=== PATIENT | female | born 1980 | race Caucasian/White ===

== ENCOUNTER 2019-10-16 16:27 | Outpatient (CLI) | payer MEDICAID, SELFPAY ==
[2019-10-16 17:09] LABS: Basophils # 0.1 10^3/uL (0.0-0.1); Basophils % 0.7 %; Eosinophils # 0.2 10^3/uL (0.0-0.8); Eosinophils % 1.8 %; Hematocrit 43.5 % (37.0-47.0); Hemoglobin 13.9 g/dL (11.5-15.3); Lymphocytes # 2.2 10^3/uL (0.8-4.8); Lymphocytes % 20.1 %; Mean Corpuscular Hemoglobin 30.8 pg (28.0-34.0); Mean Corpuscular Volume 96.2 fL (81-99); Mean Platelet Volume 12.1 fL (7.4-10.4); Monocytes # 0.9 10^3/uL (0.2-0.9); Monocytes % 8.4 %; Neutrophils # 7.43 10^3/uL (1.8-7.7); Neutrophils % 68.5 %; Nucleated Red Blood Cells % 0 %; Platelet Count 233 10^3/cmm (130-400); Red Blood Count 4.52 10^6/uL (4.1-5.3); Red Cell Distribution Width 12.4 % (12.1-15.1); White Blood Count 10.8 10^3/uL (4.0-10.0)
[2019-10-16 17:32] LABS: Alanine Aminotransferase 11 U/L (0-33); Albumin Level 4.5 g/dL (3.5-5.2); Alkaline Phosphatase 71 IU/L (35-105); Aspartate Amino Transferase 14 U/L (0-32); Blood Urea Nitrogen 15 mg/dL (6-20); C Reactive Protein 5.9 mg/L (0.0-4.9); Calcium 9.1 mg/dL (8.5-10.5); Carbon Dioxide 21 mmol/L (22-29); Chloride 103 mmol/L (98-107); Globulin 3.2 g/dL (1.3-4.6); Glomerular Filtration Rate 94.7 mL/min (90-130); Glucose 209 mg/dL (65-115); Osmolality Calculated 278 mOsm/kg (285-295); Sodium 133 mmol/L (136-145); Thyroid Stimulating Hormone 1.16 uIU/mL (0.27-4.20); Total Bilirubin 0.6 mg/dL (0.15-1.2); Total Protein 7.7 g/dL (6.6-8.7)
[2019-10-16 18:15] LABS: Calcium 9.7 mg/dL (8.5-10.5); Parathyroid Hormone 27.9 pg/mL (15-65)
[2019-10-16 18:19] LABS: HIV 1 & 2 Antibody Non-Reactive (Non-Reactiv); HIV 1 & 2 Antigen Non-Reactive (Non-Reactiv)
[2019-10-16 19:40] LABS: Erythrocyte Sedimentation Rate 18 mm/hr (0-15)
[2019-10-18 11:22] LABS: Angiotensin Converting Enzyme 6 U/L (9-67)
[2019-10-22 22:17] LABS: Vit D 1,25 (Oh)2, Total 52 pg/mL (18-72); Vit D2 1,25 (Oh)2 <8 pg/mL; Vit D3 1,25 (Oh)2 52 pg/mL
== END 2019-10-16 16:28 | disposition home or self-care (01) ==
LOC: LAB 16:33
PROVIDERS: Visit Provider Internal Medicine Pulmonary Disease
DX: D86.9 Sarcoidosis, unspecified (principal); J44.1 Chronic obstructive pulmonary disease with (acute) exacerbation; Z87.891 Personal history of nicotine dependence
CPT/HCPCS: 80053; 82164; 82310; 82652; 83970; 84443; 85025; 85651; 86140; 87806

== ENCOUNTER → 2019-11-07 16:30 | Outpatient (BNVA) | payer MEDICAID, SELFPAY | PROVIDERS: Visit Provider Nurse Practitioner Family | DX: J44.1 Chronic obstructive pulmonary disease with (acute) exacerbation (principal); Z11.59 Encounter for screening for other viral diseases | CPT/HCPCS: 87635 ==

== ENCOUNTER → 2020-03-05 08:28 | Outpatient (BNVA) | payer BC, SELFPAY | PROVIDERS: Visit Provider Psychiatry & Neurology Psychiatry | DX: F43.12 Post-traumatic stress disorder, chronic (principal); F33.2 Major depressive disorder, recurrent severe without psychotic features; F41.1 Generalized anxiety disorder; F12.20 Cannabis dependence, uncomplicated; F17.200 Nicotine dependence, unspecified, uncomplicated; F41.0 Panic disorder [episodic paroxysmal anxiety] | CPT/HCPCS: 99204 ==

== ENCOUNTER → 2020-04-16 08:23 | Outpatient (BNVA) | payer BC, SELFPAY | PROVIDERS: Visit Provider Psychiatry & Neurology Psychiatry | DX: F41.1 Generalized anxiety disorder (principal); F33.2 Major depressive disorder, recurrent severe without psychotic features; F43.12 Post-traumatic stress disorder, chronic; F17.200 Nicotine dependence, unspecified, uncomplicated; F12.20 Cannabis dependence, uncomplicated | CPT/HCPCS: 99213 ==

== ENCOUNTER → 2020-05-26 09:02 | Outpatient (BNVA) | payer BC, SELFPAY | PROVIDERS: Visit Provider Psychiatry & Neurology Psychiatry | DX: F41.1 Generalized anxiety disorder (principal); F33.2 Major depressive disorder, recurrent severe without psychotic features; F17.200 Nicotine dependence, unspecified, uncomplicated; F12.20 Cannabis dependence, uncomplicated; F43.12 Post-traumatic stress disorder, chronic | CPT/HCPCS: 99213 ==

== ENCOUNTER → 2020-06-22 08:23 | Outpatient (BNVA) | payer BC, SELFPAY | PROVIDERS: Visit Provider Counselor Mental Health | DX: F43.12 Post-traumatic stress disorder, chronic (principal); F33.2 Major depressive disorder, recurrent severe without psychotic features; F41.1 Generalized anxiety disorder | CPT/HCPCS: 90834 ==

== ENCOUNTER → 2020-07-02 08:27 | Outpatient (BNVA) | payer BC, SELFPAY | PROVIDERS: Visit Provider Counselor Mental Health | DX: F41.1 Generalized anxiety disorder (principal); F33.2 Major depressive disorder, recurrent severe without psychotic features; F43.12 Post-traumatic stress disorder, chronic | CPT/HCPCS: 90834 ==

== ENCOUNTER → 2020-07-09 09:28 | Outpatient (BNVA) | payer BC, SELFPAY | PROVIDERS: Visit Provider Counselor Mental Health | DX: F43.12 Post-traumatic stress disorder, chronic (principal); F41.1 Generalized anxiety disorder; F33.2 Major depressive disorder, recurrent severe without psychotic features | CPT/HCPCS: 90834 ==

== ENCOUNTER → 2020-07-23 08:19 | Outpatient (BNVA) | payer BC, SELFPAY | PROVIDERS: Visit Provider Counselor Mental Health | DX: F43.12 Post-traumatic stress disorder, chronic (principal); F41.1 Generalized anxiety disorder; F33.2 Major depressive disorder, recurrent severe without psychotic features | CPT/HCPCS: 90834 ==

== ENCOUNTER → 2020-07-29 08:27 | Outpatient (BNVA) | payer BC, SELFPAY | PROVIDERS: Visit Provider Counselor Mental Health | DX: F41.1 Generalized anxiety disorder (principal); F33.2 Major depressive disorder, recurrent severe without psychotic features; F43.12 Post-traumatic stress disorder, chronic | CPT/HCPCS: 90834 ==

== ENCOUNTER → 2020-08-05 08:06 | Outpatient (BNVA) | payer BC, SELFPAY | PROVIDERS: Visit Provider Counselor Mental Health | DX: F43.12 Post-traumatic stress disorder, chronic (principal); F33.2 Major depressive disorder, recurrent severe without psychotic features; F41.1 Generalized anxiety disorder | CPT/HCPCS: 90834 ==

== ENCOUNTER → 2020-08-11 08:06 | Outpatient (BNVA) | payer BC, SELFPAY | PROVIDERS: Visit Provider Counselor Mental Health | DX: F43.12 Post-traumatic stress disorder, chronic (principal); F41.1 Generalized anxiety disorder; F33.2 Major depressive disorder, recurrent severe without psychotic features | CPT/HCPCS: 90834 ==

== ENCOUNTER → 2020-08-17 07:57 | Outpatient (BNVA) | payer BC, SELFPAY | PROVIDERS: Visit Provider Counselor Mental Health | DX: F43.12 Post-traumatic stress disorder, chronic (principal); F33.2 Major depressive disorder, recurrent severe without psychotic features; F41.1 Generalized anxiety disorder | CPT/HCPCS: 90834 ==

== ENCOUNTER → 2020-08-18 11:10 | Outpatient (BNVA) | payer BC, SELFPAY | PROVIDERS: Visit Provider Psychiatry & Neurology Psychiatry | DX: F41.1 Generalized anxiety disorder (principal); F33.2 Major depressive disorder, recurrent severe without psychotic features; F43.12 Post-traumatic stress disorder, chronic; F17.200 Nicotine dependence, unspecified, uncomplicated; F12.20 Cannabis dependence, uncomplicated | CPT/HCPCS: 99213 ==

== ENCOUNTER → 2020-09-07 07:34 | Outpatient (BNVA) | payer BC, OTHER, SELFPAY | PROVIDERS: Visit Provider Counselor Mental Health | DX: F41.1 Generalized anxiety disorder (principal); F33.2 Major depressive disorder, recurrent severe without psychotic features; F43.12 Post-traumatic stress disorder, chronic | CPT/HCPCS: 90834 ==

== ENCOUNTER → 2020-09-21 07:19 | Outpatient (BNVA) | payer BC, SELFPAY | PROVIDERS: Visit Provider Counselor Mental Health | DX: F43.12 Post-traumatic stress disorder, chronic (principal); F33.2 Major depressive disorder, recurrent severe without psychotic features; F41.1 Generalized anxiety disorder | CPT/HCPCS: 90834 ==

== ENCOUNTER → 2020-10-06 08:16 | Outpatient (BNVA) | payer BC, OTHER, SELFPAY | PROVIDERS: Visit Provider Counselor Mental Health | DX: F43.12 Post-traumatic stress disorder, chronic (principal); F33.2 Major depressive disorder, recurrent severe without psychotic features; F41.1 Generalized anxiety disorder | CPT/HCPCS: 90834 ==

== ENCOUNTER → 2020-10-20 07:37 | Outpatient (BNVA) | payer BC, OTHER, SELFPAY | PROVIDERS: Visit Provider Counselor Mental Health | DX: F43.12 Post-traumatic stress disorder, chronic (principal); F41.1 Generalized anxiety disorder; F33.2 Major depressive disorder, recurrent severe without psychotic features | CPT/HCPCS: 90834 ==

== ENCOUNTER → 2020-11-03 08:41 | Outpatient (BNVA) | payer BC, SELFPAY | PROVIDERS: Visit Provider Counselor Mental Health | DX: F33.2 Major depressive disorder, recurrent severe without psychotic features (principal); F41.1 Generalized anxiety disorder; F43.12 Post-traumatic stress disorder, chronic | CPT/HCPCS: 90834 ==

== ENCOUNTER → 2020-11-10 10:19 | Outpatient (BNVA) | payer BC, SELFPAY | PROVIDERS: Visit Provider Psychiatry & Neurology Psychiatry | DX: F41.1 Generalized anxiety disorder (principal); F33.2 Major depressive disorder, recurrent severe without psychotic features; F43.12 Post-traumatic stress disorder, chronic; F17.200 Nicotine dependence, unspecified, uncomplicated; F12.20 Cannabis dependence, uncomplicated | CPT/HCPCS: 80061; 83036; 99214 ==

== ENCOUNTER → 2020-11-17 09:15 | Outpatient (BNVA) | payer BC, OTHER, SELFPAY ==
[2020-11-12 14:15] VITALS: BP 121/88; BMI 34.0
== END ==
PROVIDERS: Visit Provider Counselor Mental Health
DX: F33.2 Major depressive disorder, recurrent severe without psychotic features (principal); F33.1 Major depressive disorder, recurrent, moderate; F41.1 Generalized anxiety disorder
CPT/HCPCS: 90834

== ENCOUNTER → 2020-12-01 10:02 | Outpatient (BNVA) | payer BC, SELFPAY ==
[2020-11-12 14:15] VITALS: BP 121/88; BMI 34.0
== END ==
PROVIDERS: Visit Provider Counselor Mental Health
DX: F43.12 Post-traumatic stress disorder, chronic (principal); F33.2 Major depressive disorder, recurrent severe without psychotic features; F41.1 Generalized anxiety disorder
CPT/HCPCS: 90834

== ENCOUNTER → 2021-01-12 12:00 | Outpatient (BNVA) | payer BC, SELFPAY ==
[2020-11-12 14:15] VITALS: BP 121/88; BMI 34.0
== END ==
PROVIDERS: Visit Provider Counselor Mental Health
DX: F41.1 Generalized anxiety disorder (principal); F33.2 Major depressive disorder, recurrent severe without psychotic features; F43.12 Post-traumatic stress disorder, chronic
CPT/HCPCS: 90834

== ENCOUNTER → 2021-02-02 07:37 | Outpatient (BNVA) | payer BC, OTHER, SELFPAY ==
[2020-11-12 14:15] VITALS: BP 121/88; BMI 34.0
== END ==
PROVIDERS: Visit Provider Psychiatry & Neurology Psychiatry
DX: F41.1 Generalized anxiety disorder (principal); F33.2 Major depressive disorder, recurrent severe without psychotic features; F43.12 Post-traumatic stress disorder, chronic; F17.200 Nicotine dependence, unspecified, uncomplicated; F12.20 Cannabis dependence, uncomplicated
CPT/HCPCS: 99213

== ENCOUNTER → 2021-03-23 08:10 | Outpatient (BNVA) | payer BC, OTHER, SELFPAY ==
[2020-11-12 14:15] VITALS: BP 121/88; BMI 34.0
== END ==
PROVIDERS: PCP Family Medicine; Visit Provider Psychiatry & Neurology Psychiatry
DX: F41.1 Generalized anxiety disorder (principal); F33.2 Major depressive disorder, recurrent severe without psychotic features; F43.12 Post-traumatic stress disorder, chronic; F17.200 Nicotine dependence, unspecified, uncomplicated; F12.20 Cannabis dependence, uncomplicated
CPT/HCPCS: 99213

== ENCOUNTER → 2021-06-22 07:31 | Outpatient (BNVA) | payer BC, OTHER, SELFPAY ==
[2020-11-12 14:15] VITALS: BP 121/88; BMI 34.0
== END ==
PROVIDERS: PCP Family Medicine; Visit Provider Psychiatry & Neurology Psychiatry
DX: F41.1 Generalized anxiety disorder (principal); F17.200 Nicotine dependence, unspecified, uncomplicated; F12.20 Cannabis dependence, uncomplicated; F33.2 Major depressive disorder, recurrent severe without psychotic features; F43.12 Post-traumatic stress disorder, chronic
CPT/HCPCS: 99214

== ENCOUNTER → 2021-07-15 07:20 | Outpatient (BNVA) | payer BC, SELFPAY ==
[2020-11-12 14:15] VITALS: BP 121/88; BMI 34.0
== END ==
PROVIDERS: PCP Family Medicine; Visit Provider Nurse Practitioner
DX: F41.1 Generalized anxiety disorder (principal); F33.2 Major depressive disorder, recurrent severe without psychotic features; F43.12 Post-traumatic stress disorder, chronic; F17.200 Nicotine dependence, unspecified, uncomplicated; F12.20 Cannabis dependence, uncomplicated
CPT/HCPCS: 99214

== ENCOUNTER → 2021-08-12 07:10 | Outpatient (BNVA) | payer BC, SELFPAY ==
[2020-11-12 14:15] VITALS: BP 121/88; BMI 34.0
== END ==
PROVIDERS: PCP Family Medicine; Visit Provider Nurse Practitioner
DX: F43.12 Post-traumatic stress disorder, chronic (principal); F33.2 Major depressive disorder, recurrent severe without psychotic features; F41.1 Generalized anxiety disorder; F12.20 Cannabis dependence, uncomplicated; F17.200 Nicotine dependence, unspecified, uncomplicated
CPT/HCPCS: 99214

== ENCOUNTER 2024-05-21 07:57 | Day surgery (SDC) | payer BC, MEDICAID, SELFPAY ==
[2021-11-23 14:38] VITALS: BP 121/88; BMI 34.0
[2024-05-21 08:12] VITALS: BP 142/92; PULSE 94; RESP 17; TEMP 36.4; O2SAT 98; BMI 31.7
--- NOTE | 2024-05-21 08:21 | ANES.PREANE2 ---
Pre-Anesthetic Assessment Height/Weight: Height 1.75 m Weight 97.522 kg Temp Pulse Resp BP Pulse Ox O2 Del Method 97.6 F 94 17 142/92 98 Room Air 05/21/24 08:12 05/21/24 08:12 05/21/24 08:12 05/21/24 08:12 05/21/24 08:12 05/21/24 08:12 Preop Diagnosis: IBS Operation Date: 05/21/24 09:00 Proposed Procedures p Colonoscopy 01102 G0105 R19.4(Not Applicable) - Mo Estrada MD Was Beta Gregory taken within 24 hours: N/A Was Clonidine taken within 24 hours: N/A Last intake: Intake Last Liquid Date 05/20/24 Last Liquid Time 22:00 Last Solid Date 05/19/24 Last Solid Time 18:00 Social Tobacco 1/2 ppd pack(s) per day smokes marijuana Exam alert and oriented x 3 Airway Mallampati: Class II Dentition: chipped (broken upper right molar; hole in upper left tooth reported) History/ROS No significant history except as noted Pulmonary Chronic Obstructive Pulmonary Disease SOB walking across room; uses inhaler daily CV/HEM Congestive Heart Failure (on lasix), Hypertension and Murmur sarcoidosis diagnosis; sees facer operator in [facility] for BP None reported Hepatic None reported GI Gastroesophageal Reflux Disease Metabolic None reported Musc/skel None reported Neuropsych None reported Anesthetic Plan ASA status: 3 Anesthesia: MAC Risk of > 500 ml blood loss (7ml/kg in children): No Medications/Allergies Home Medications ?Medication ?Instructions ?Recorded ?Confirmed ?Last Taken ?Type sumatriptan succinate 50 mg tablet 50 mg PO Q2H PRN Headache 08/17/20 05/21/24 05/16/24 History (Imitrex) budesonide-formoterol HFA 160 1 puff inhalation BID 04/05/24 05/21/24 05/16/24 History mcg-4.5 mcg/actuation aerosol inhaler (Symbicort) furosemide 20 mg tablet 20 mg PO BID 04/05/24 05/21/24 05/20/24 History potassium chloride 10 mEq 10 meq PO BID 04/05/24 05/21/24 05/20/24 History tablet,extended release carvedilol 6.25 mg tablet (Coreg) 6.25 mg PO BID 04/25/24 05/21/24 05/20/24 History trazodone 300 mg tablet 300 mg PO BEDTIME 04/25/24 05/21/24 05/20/24 History ibuprofen 200 mg tablet 800 mg PO Q6H PRN Pain 05/16/24 05/21/24 05/20/24 History lisinopril 40 mg tablet 40 mg PO DAILY 05/16/24 05/21/24 05/20/24 History omeprazole 40 mg capsule,delayed 40 mg PO DAILY 05/16/24 05/21/24 05/20/24 History release Allergies Allergy/AdvReac Type Severity Reaction Status Date / Time No Known Allergies Allergy Verified 05/21/24 08:11 [facility] Anesthesia Medical History Sarcoidosis Family History Father Hypertension Diabetes Grandmother Diabetes Cancer Mother Cancer Social History Smoking and tobacco/nicotine status: former use of tobacco/nicotine Quit status (tobacco/nicotine): has tried quititng Number of times tried to quit tobacco: 2 Second hand smoke exposure: Yes Alcohol intake: former Substance/Drug Use: current Substance/Drug use frequency: daily Other substance/drug use details: Pain. Adopted: No Caregiver/support person: No Lives independently: Yes Household members: spouse and children Housing: House Marital status: Number of children: 3 Highest education level completed: High School Graduate Current occupational status: disabled Pets and animals: Yes Pets & animals: dog(s) Leisure activites: other Leisure activities details: Play on phone, Watch Tv Sexually active: Yes Do you think of yourself as: Straight/Heterosexual Current gender identity: Female Ashleigh/Catholic: Hindu Special ashleigh needs: No Agree to transfusion: Yes Female Reproductive History Para: 3 Data Anesthesia Cardiac Studies: No Data to Display
[2024-05-21] MEDS: sodium chloride 0.9% 1,000 ML 30 ML IV (08:26)
--- NOTE | 2024-05-21 08:27 | W.PM.OPSFHP ---
Same Day Surgery H&P Indication for Procedure/HPI DATE OF PROCEDURE: May 21, 2024 CHIEF COMPLAINT/INDICATIONFOR SURGICAL PROCEDURE: changes in bowel habits PREOP DIAGNOSIS: IBS PLANNED PROCEDURE: Operation Date: 05/21/24 09:00 Proposed Procedures p Colonoscopy 07822 G0105 R19.4(Not Applicable) - Mo Estrada MD Medications/Allergies* Home Medications ?Medication ?Instructions ?Recorded ?Confirmed ?Type sumatriptan succinate 50 mg tablet 50 mg PO Q2H PRN Headache 08/17/20 05/21/24 History (Imitrex) budesonide-formoterol HFA 160 1 puff inhalation BID 04/05/24 05/21/24 History mcg-4.5 mcg/actuation aerosol inhaler (Symbicort) furosemide 20 mg tablet 20 mg PO BID 04/05/24 05/21/24 History potassium chloride 10 mEq 10 meq PO BID 04/05/24 05/21/24 History tablet,extended release carvedilol 6.25 mg tablet (Coreg) 6.25 mg PO BID 04/25/24 05/21/24 History trazodone 300 mg tablet 300 mg PO BEDTIME 04/25/24 05/21/24 History ibuprofen 200 mg tablet 800 mg PO Q6H PRN Pain 05/16/24 05/21/24 History lisinopril 40 mg tablet 40 mg PO DAILY 05/16/24 05/21/24 History omeprazole 40 mg capsule,delayed 40 mg PO DAILY 05/16/24 05/21/24 History release Allergies/Adverse Reactions Allergy/AdvReac Type Severity Reaction Status Date / Time No Known Allergies Allergy Verified 05/21/24 08:11 Current Medications: Generic Name Dose Route Start Last Admin Trade Name Freq PRN Reason Stop Dose Admin Sodium Chloride 1,000 mls @ 30 mls/hr 05/21/24 08:30 05/21/24 08:26 Sodium Chloride 0.9% IV 30 mls/hr .Q24H EDWIN Administration Pertinent History/Comorbid Conditions* Medical History (Updated 04/05/24 @ 11:19 by Mo Estrada MD) Sarcoidosis Family History (Updated 01/28/20 @ 14:08 by Shirley Black LPN) Mother Diabetes Father Grandmother Cancer Grandmother Mother Hypertension Father Social History Smoking and tobacco/nicotine status: former use of tobacco/nicotine Quit status (tobacco/nicotine): has tried quititng Number of times tried to quit tobacco: 2 Second hand smoke exposure: Yes Alcohol intake: former Substance/Drug Use: current Substance/Drug use frequency: daily Other substance/drug use details: Pain. Adopted: No Caregiver/support person: No Lives independently: Yes Household members: spouse and children Housing: House Marital status: Number of children: 3 Highest education level completed: High School Graduate Current occupational status: disabled Pets and animals: Yes Pets & animals: dog(s) Leisure activites: other Leisure activities details: Play on phone, Watch Tv Sexually active: Yes Do you think of yourself as: Straight/Heterosexual Current gender identity: Female Ashleigh/Restoration: Holiness Special ashleigh needs: No Agree to transfusion: Yes Pertinent Exam Findings alert, oriented x 3, clear to auscultation bilaterally, regular rate & rhythm and procedure specific exam findings abdomen soft, nt, nd Recommendations Risks and benefits of procedure reviewed Surgery/Procedure today Other Plans: Proceed with colonoscopy Coding Level of Care Code Acute Code for [facility] Akhil
[2024-05-21 08:51] VITALS: BP 97/72; PULSE 92; RESP 16; TEMP 37.2; O2SAT 94
[2024-05-21 09:01] LABS: OR HCG Qualitative Urine Negative (Negative)
[2024-05-21 09:10] VITALS: BP 142/107; PULSE 77; RESP 18; O2SAT 97
--- NOTE | 2024-05-21 09:20 | ANE.PACU2 ---
Inpatient post-anesthesia follow up: Airway intact: Yes Vital signs: Temperature 99.0 F Pulse Rate 77 Respiratory Rate 18 Blood Pressure 142/107 Pulse Oximetry 97 Oxygen Delivery Me thod Room Air Oxygen Flow Rate Fraction of Inspir ed Oxygen Hydration adequate: Yes Nausea and vomiting: No Pain level: 1 Mental status: Baseline
== END 2024-05-21 09:22 | disposition home or self-care (01) ==
PROVIDERS: Anesthesiology; PCP Nurse Practitioner; Visit Provider Student in an Organized Health Care Education/Training Program
PROC: 0DJD8ZZ Inspection of Lower Intestinal Tract, Via Natural or Artificial Opening Endoscopic (ICD-10-PCS; CPT 45378; principal; 2024-05-21 09:00)
DX: K62.1 Rectal polyp (principal); K58.2 Mixed irritable bowel syndrome; J44.9 Chronic obstructive pulmonary disease, unspecified; K02.9 Dental caries, unspecified; I11.0 Hypertensive heart disease with heart failure; I50.9 Heart failure, unspecified; D86.9 Sarcoidosis, unspecified; K21.9 Gastro-esophageal reflux disease without esophagitis; Z79.899 Other long term (current) drug therapy; Z79.51 Long term (current) use of inhaled steroids; Z87.891 Personal history of nicotine dependence
CPT/HCPCS: 45380; 45385; 81025; 88305; J2704; J7030